=== PATIENT | female | born 1995 ===

== ENCOUNTER 2020-05-08 09:43 | Emergency (ER) ==
[2020-05-08 09:52] VITALS: BP 107/76
--- NOTE | 2020-05-08 10:31 | Emergency Department Report ---
Chief Complaint: Urogenital-Female Stated Complaint: 12WKS /STD CHECK - HPI History of Present Illness: The patient was evaluated in the emergency department for symptoms described in the history of present illness. He/she was evaluated in the context of the global COVID-19 pandemic, which necessitated consideration that the patient might be at risk for infection with the virus that causes COVID-19. Institutional protocols and algorithms that pertain to the evaluation of patients at risk for COVID-19 are in a state of rapid change based on information released by regulatory bodies including the CDC and federal and state organizations. These policies and algorithms were followed during the patient's care in the emergency department. Please note that these policies, procedures and recommendations changed on a rapid basis. 24-year-old -[place] female presents to the emergency room with no complaints just a request for STD evaluation. She states that her boyfriend has come in stating that he has a penile discharge and herpes. Patient denies any fever chills no vaginal discharge no vaginal bleeding no lesions in her vaginal area or mouth. - Exam Vital Signs: Vital Signs 05/08/20 09:51 Temperature 97.4 F L Pulse Rate 92 H Respiratory 16 Rate Blood Pressure 107/76 O2 Sat by Pulse 98 Oximetry Physical Exam: Patient is alert and oriented x3 no acute distress nontoxic in appearance Lungs nonlabored breathing no accessory muscles use Mouth is moist Back full range of motion Extremities full range of motion ambulatory without difficulties MSE screening note: Focused history and physical exam performed. Due to findings the following was ordered: 24-year-old -[place] female presents to the emergency room with no complaints just a request for STD evaluation. She states that her boyfriend has come in stating that he has a penile discharge and herpes. Patient denies any fever chills no vaginal discharge no vaginal bleeding no lesions in her vaginal area or mouth. Discussed with patient she can follow-up with her [facility] provider or urgent care provider ED Disposition for [facility] Disposition: MED SCREENING EXAM-LEFT Is pt being admited?: No Does the pt Need Aspirin: No Condition: Stable Additional Instructions: Follow up with your OB or community clinic. Referrals: [facility] [Outside] - 3-5 Days [facility] [Outside] - 3-5 Days
== END 2020-05-08 10:35 | disposition left against medical advice (07) ==
LOC: ED 09:43